=== PATIENT | female | born 1970 | race African-American/Black ===

== ENCOUNTER 2023-05-10 07:42 | Inpatient (IN) | payer BC ==
[~2023-05-10] VITALS: Ht 165.1 cm; Wt 92.1 kg
[~2023-05-10 07:42] MED LIST: ceFAZolin SODIUM 2 GM in D5W 50 ML IV ONE
[2023-05-10] MEDS ORDERED: CEFAZOLIN 2 GM IVPB PREMIX 50 ML IV ONE (08:09)
[2023-05-10] MEDS ORDERED: TRAM50TA2 PO (09:12)
[2023-05-10] MEDS ORDERED: SUMA100T PO (09:12)
[2023-05-10] MEDS ORDERED: PROPOFOL 200MG/ 20ML VIAL (DIPRIVAN) IV ONE (11:42)
[2023-05-10] MEDS ORDERED: fentaNYL CITRATE/PF 100 MCG/2 ML AMP ONE (11:42)
[2023-05-10] MEDS ORDERED: SEVOFLURANE 15 MIN GAS INH ONE (11:42)
[2023-05-10] MEDS ORDERED: ROCURONIUM BROMIDE 10 MG/ML (ZEMURON) ONE (11:42)
[2023-05-10] MEDS ORDERED: LR 1,000 ML IV.SOLN IV ONE (11:42)
[2023-05-10] MEDS ORDERED: MIDAZOLAM HCL 5 MG/ML VIAL (VERSED) IV ONE (11:42)
[2023-05-10] MEDS ORDERED: SUCCINYLCHOLINE CHLORIDE 20 MG/ML(QUELICIN) ONE (11:42)
[2023-05-10] MEDS ORDERED: NS 1000 ML IV.SOLN IV ONE (11:42)
[2023-05-10] MEDS ORDERED: BUPIVACAINE /PF 0.25% 30 ML VIAL INJ ONE (11:42)
[2023-05-10] MEDS ORDERED: WATER FOR IRRIGATION,STERILE 1,000 ML IRRIG.SOLN IR ONE (11:42)
[2023-05-10] MEDS ORDERED: NEOSTIGMINE METHYLSULFATE 1 MG/ML, 10 ML VIAL ONE (11:42)
[2023-05-10] MEDS ORDERED: ONDANSETRON HCL 4 MG/2 ML VIAL ONE (11:42)
[2023-05-10] MEDS ORDERED: KETOROLAC TROMETHAMINE 30 MG VIAL ONE (11:42)
[2023-05-10] MEDS ORDERED: GLYCOPYRROLATE 0.2 MG/ML VIAL ONE (11:42)
[2023-05-10] MEDS ORDERED: HYDROmorphone 1 MG/ML INJ. CARTRIDGE IVP PRN (13:00)
[2023-05-10] MEDS ORDERED: ONDANSETRON HCL 4 MG/2 ML VIAL IVP PRN (13:00)
[2023-05-10] MEDS ORDERED: ACETAMINOPHEN I.V. 1000 MG 100 ML IV ONE (13:00)
[2023-05-10] MEDS ORDERED: HYDROmorphone 1 MG/ML INJ. CARTRIDGE ONE (15:50)
[2023-05-10 16:00] VITALS: BP_SYST 111; PULSE 74; RESP 16; TEMP 97.3; O2SAT 100
[2023-05-10 20:00] VITALS: BP_SYST 118; PULSE 88; RESP 18; TEMP 97; O2SAT 99
[2023-05-10] MEDS: HYDROmorphone 1 MG/ML INJ. CARTRIDGE IVP PRN (20:41)
[2023-05-11] MEDS: SUMAtriptan SUCCINATE 50 MG TABLET PO PRN ×4 (00:23→21:37)
[2023-05-11] MEDS: HYDROmorphone 1 MG/ML INJ. CARTRIDGE IVP PRN ×6 (00:24→21:30)
[2023-05-11 00:35] VITALS: BP_SYST 116; PULSE 75; RESP 14; TEMP 97.1; O2SAT 100
[2023-05-11 08:00] VITALS: O2SAT 95
[2023-05-11 09:00] VITALS: BP_SYST 134; PULSE 78; RESP 16; TEMP 97.4; O2SAT 95
[2023-05-11 09:41] LABS: BASOPHILS % (AUTO) 0.4 % (0.0-2.0); EOSINOPHILS # (AUTO) 0.1 K/uL (0.0-0.4); EOSINOPHILS % (AUTO) 1.4 % (0.0-4.0); HEMOGLOBIN 10.8 g/dL (12.0-16.0); LYMPHOCYTES # (AUTO) 1.2 K/uL (1.0-5.5); LYMPHOCYTES % (AUTO) 16.1 % (20.5-51.5); MEAN CORPUSCULAR HEMOGLOBIN 26 pg (27-31); MEAN CORPUSCULAR HGB CONC 32 % (32-36); MEAN CORPUSCULAR VOLUME 82 fL (79.0-98.0); MONOCYTES # (AUTO) 0.6 K/uL (0.0-1.0); MONOCYTES % (AUTO) 8.4 % (1.7-9.3); NEUTROPHILS # (AUTO) 5.5 K/uL (1.8-7.7); NEUTROPHILS % (AUTO) 73.7 % (40.0-70.0); PLATELET COUNT (AUTO) 334 K/uL (130-430); RED BLOOD CELL COUNT(AUTO) 4.13 MIL/uL (4.2-6.2); RED CELL DISTRIBUTION WIDTH 12.9 % (9.0-15.0); WHITE BLOOD COUNT (AUTO) 7.5 K/uL (4.8-10.8)
[2023-05-11] MEDS ORDERED: ACETAMINOPHEN 650 MG/20.3 ML UDC PO PRN (14:00)
[2023-05-11] MEDS ORDERED: traMADol HCL HCL 50 MG TABLET (ULTRAM) PO PRN (14:00)
[2023-05-11] MEDS: DEXTROMET/BENZOCAIN/MENTHOL SF 1 LOZENGE MM PRN ×3 (14:31→23:55)
[2023-05-11 20:00] VITALS: BP_SYST 122; PULSE 86; RESP 18; TEMP 97; O2SAT 100
[2023-05-11] MEDS: ceFAZolin SODIUM 1 GM in D5W 50 ML IV SCH (21:32)
[2023-05-12 00:15] VITALS: BP_SYST 131; PULSE 82; RESP 16; TEMP 96.8; O2SAT 96
[2023-05-12] MEDS: HYDROmorphone 1 MG/ML INJ. CARTRIDGE IVP PRN ×5 (01:40→17:41)
[2023-05-12] MEDS: DEXTROMET/BENZOCAIN/MENTHOL SF 1 LOZENGE MM PRN (04:01)
[2023-05-12] MEDS: ceFAZolin SODIUM 1 GM in D5W 50 ML IV SCH ×2 (05:31→13:42)
[2023-05-12] MEDS: SUMAtriptan SUCCINATE 50 MG TABLET PO PRN (06:54)
[2023-05-12 08:00] VITALS: BP_SYST 113; PULSE 78; RESP 18; TEMP 97.5; O2SAT 96
[2023-05-12 12:00] VITALS: BP_SYST 115; PULSE 89; RESP 20; TEMP 97.6; O2SAT 100
[2023-05-12] MEDS ORDERED: HYDR-3927 PO (15:17)
[2023-05-12 16:00] VITALS: BP_SYST 126; PULSE 87; RESP 20; TEMP 97.8
[2023-05-12 17:30] VITALS: BP_SYST 125; PULSE 82; RESP 20; TEMP 97.9; O2SAT 97
== END 2023-05-12 18:10 | disposition home or self-care (01) | DRG 331 ==
LOC: SDS 07:42 → SMU 07:43 → SDS 15:48 → SMU 15:49
PROVIDERS: ADMIT Surgery; ATTEND Surgery
PROC: 0DQ84ZZ Repair Small Intestine, Percutaneous Endoscopic Approach (ICD-10-PCS; 2023-05-10)
PROC: 0DNN4ZZ Release Sigmoid Colon, Percutaneous Endoscopic Approach (ICD-10-PCS; 2023-05-10)
PROC: 8E0W4CZ Robotic Assisted Procedure of Trunk Region, Percutaneous Endoscopic Approach (ICD-10-PCS; 2023-05-10)
PROC: 0DNU4ZZ Release Omentum, Percutaneous Endoscopic Approach (ICD-10-PCS; principal; 2023-05-10 11:42)
DX: K66.0 Peritoneal adhesions (postprocedural) (postinfection) (principal); R51.9 Headache, unspecified; Z90.710 Acquired absence of both cervix and uterus
CPT/HCPCS: 36415; 85025; 87081; J0131; J0330; J0690; J1170; J1885; J2250; J2405; J2704; J2710; J3010; J3490; J7030; J7060; J7120